=== PATIENT | female | born 1970 | race Caucasian/White ===

== ENCOUNTER 2019-10-27 18:50 | Emergency (ER) | payer BC, OTHER ==
[~2019-10-27] VITALS: Ht 162.6 cm; Wt 97.5 kg
[2019-10-27 18:51] VITALS: BP_SYST 162
[2019-10-27] MEDS ORDERED: KETOROLAC TROMETHAMINE 60 MG/2 ML VIAL IM ONE (20:30)
[2019-10-27 21:07] VITALS: BP_SYST 149
== END 2019-10-27 21:07 | disposition home or self-care (01) ==
LOC: SED 18:50
DX: J11.1 Influenza due to unidentified influenza virus with other respiratory manifestations (principal); R05 Cough; Z90.710 Acquired absence of both cervix and uterus
CPT/HCPCS: 86710; 96372; 99283; J1885; 36415